=== PATIENT | male | born 2000 | race Caucasian/White ===

== ENCOUNTER 2025-03-12 21:33 | Emergency (ER) | payer OTHER, SELFPAY ==
[2025-03-12 23:31] VITALS: BMI 25.2
--- NOTE | 2025-03-12 23:52 | ED.GENMED ---
History of Present Illness
General
Chief Complaint: Musculo-Skeletal Complaint
Source: patient and spouse
Exam Limitations: none
Time Seen by Provider: 03/12/25 23:46
Nursing documentation reviewed up to this point in time: agreed with
History of Present Illness
History of Present Illness:
The patient is a 25-year-old male who reports the onset of lower back pain localized to the right side and toward the middle of the back. 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 The patient
describes the pain as exacerbated by movement and positioning, though reports it is not excruciating unless unsupported. No associated urinary symptoms, changes in bowel movements, nausea, or fever have been reported. The patient has a known history
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 There seems to be no pain upon palpation over the area of the scoliosis, nor abdominal tenderness.
Review of Systems
Review of Systems
Allergies reviewed?: Yes
All Other Systems: ROS reviewed and negative except as documented in HPI and ROS
Phy Exam
Physical Exam
Physical Exam:
GENERAL: Alert , in no apparent distress
EYE: pupils equal and reactive
NECK: Supple, no significant adenopathy.
ENT: o/p clr, mmm.
CARDIAC: Regular rate and rhythm .
LUNGS: Clear breath sounds bilaterally, no acute respiratory distress, no wheezes/rales/rhonchi
ABDOMEN: Soft, without focal tenderness, no r/g, no cvat
NEUROLOGICAL: Alert and oriented, no focal neuro deficits
SKIN: Warm and dry, skin intact.
MUSCULOSKELETAL: No edema, well perfused.
PSYCH: Normal and appropriate interaction.
Course
Orders/Labs/Results
Orders:
Orders
03/12/25 23:52
Urinalysis Reflex To Culture Urgent
Date Specimen was Collected: 03/13/25
Time Specimen was Collected: 00:12
Acetaminophen [Tylenol] 1,000 mg PO NOW STA
Cyclobenzaprine HCl [Flexeril] 10 mg PO NOW STA
03/13/25 00:08
Amoxicillin Trihydrate [Trimox/Amoxil] 300 mg PO NOW STA
Ondansetron Orally Disint [Zofran Odt (Orally Disintegrating)] 2 mg PO NOW STA
Vital Signs
Initial and Last Documented VS:
Initial Vital Signs
Temp Pulse Resp Pulse Ox
98.4 F 95 18 99
03/12/25 21:35 03/12/25 21:35 03/12/25 21:35 03/12/25 21:35
Last Documented Vital Signs
Temp Pulse Resp Pulse Ox
98.4 F 95 18 99
03/12/25 21:35 03/12/25 21:35 03/12/25 21:35 03/12/25 21:35
MDM/Problems Addressed
MDM/Problems Addressed:
- Administer Tylenol for pain relief.
- Consider muscle relaxant; the patient advised against driving if taken.
- Obtain a urine analysis to rule out kidney stones.
- Discussed potentially obtaining a CT scan if urine analysis suggests or if pain persists/worsens.
The Differential Diagnosis includes, in no particular order and is not limited to:
1. Mechanical back pain
2. Kidney stone
3. Musculoskeletal strain
4. Lumbar radiculopathy
5. Urinary tract infection
6. Pyelonephritis
7. Scoliosis-related pain
8. Herniated disc
9. Sacroiliitis
10. Appendicitis
Patient with improving symptoms after receiving medication. Urinalysis without any acute abnormalities kidney stone very unlikely. Seems to be musculoskeletal plan for symptomatic treatment and close outpatient follow-up. Return precautions given.
*Critical Care Note
Total Time (30-74mins, 75-104mins- exclusive of procedures): Not Applicable
ED Attending Note
-
Portions of this chart may have been created with voice recognition software.� Occasional wrong word or��sound alike� substitutions may have occurred due to the inherent limitations of voice recognition software.
Discharge Plan
Departure
Patient Disposition: Home (Routine Discharge)
Date of Disposition: 03/13/25
Time of Disposition: 01:11
Patient with high blood pressure during this ER visit?: No
Condition: Good
Covid-19: Not Applicable
Discharge Problem:
Low back pain
Instructions: Low back pain in adults
Prescriptions:
New
cyclobenzaprine 10 mg tablet
10 mg PO HS PRN (Reason: muscle spasm) Qty: 7 0RF
Referrals:
Faustino Smallwood DO [Family Provider, Internal Medicine]
Activity Restrictions/Additional Instructions:
You came to the emergency department today with concerns of back pain. This is likely mechanical. Please take the medications as prescribed and otherwise follow-up close with the primary care doctor within a week. Return for any worsening, new or
concerning symptoms.
Interventions
Interventions:
*Risk Screen - Suicide Last Done: 03/12/25 21:35
*General Assessment Last Done: 03/12/25 21:35
*Neglect/Abuse Screening Last Done: 03/12/25 21:35
*ED- Fall Risk Assessment Last Done: 03/12/25 23:32
*ED COVID-19 Vaccine History Last Done: 03/12/25 23:32
ED-Musculoskeletal Assessment Last Done: 03/12/25 23:30
Discharge Date and Time
Print Language: ARMENIAN
[2025-03-12] MEDS: TYLENOL 1000 MG PO (23:59)
[2025-03-12] MEDS: FLEXERIL 10 MG PO (23:59)
[2025-03-13 00:25] LABS: Urine Albumin Negative (Neg - Trace); Urine Bilirubin Negative (Negative); Urine Character Clear (Clear); Urine Color Yellow; Urine Glucose Negative (Negative); Urine Ketone Negative (Negative); Urine Leukocyte Negative (Negative); Urine Nitrite Negative (Negative); Urine Occult Blood Negative (Negative); Urine Urobilinogen Negative (Neg - 1+)
[2025-03-13 01:00] VITALS: BP 136/95
[2025-03-13 01:23] VITALS: BP 136/95
== END 2025-03-13 01:24 | disposition home or self-care (01) ==
LOC: EMR 21:33
PROVIDERS: Physician Assistant; EMERGENCY PHYSICIAN Student in an Organized Health Care Education/Training Program; FAMILY PHYSICIAN Internal Medicine
DX: M54.50 Low back pain, unspecified (principal); Q60.0 Renal agenesis, unilateral; M41.9 Scoliosis, unspecified
CPT/HCPCS: 99283; 81003